=== PATIENT | female | born 1965 | race Two or more races ===

== ENCOUNTER 2019-12-21 09:38 | Emergency (ER) | payer OTHER ==
[~2019-12-21] VITALS: Ht 157.5 cm; Wt 68.0 kg
--- NOTE | 2019-12-21 10:07 | NUR ---
DR VILLAVICENCIO AT BEDSIDE FOR EVAL.
[2019-12-21] MEDS ORDERED: HYDROCODONE/APAP 5/325MG 1 EACH TABLET ONE (10:29)
[2019-12-21] MEDS ORDERED: HYDROCODONE/APAP 5/325MG 1 EACH TABLET PO ONE (10:30)
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
--- NOTE | 2019-12-21 11:35 | NUR ---
Patient discharged to home in stable condition. Written and verbal after care instructions given. Patient verbalizes understanding of instruction.
[2019-12-21 11:36] VITALS: BP 115/72
== END 2019-12-21 11:37 | disposition home or self-care (01) ==
LOC: ER 09:38
DX: S00.83XA Contusion of other part of head, initial encounter (principal); M32.9 Systemic lupus erythematosus, unspecified; Y04.0XXA Assault by unarmed brawl or fight, initial encounter; Y93.89 Activity, other specified; Y92.89 Other specified places as the place of occurrence of the external cause; Y99.8 Other external cause status
CPT/HCPCS: 70450-TC; 70486-TC

== ENCOUNTER 2019-12-27 17:08 | Emergency (ER) | payer OTHER ==
[~2019-12-27] VITALS: Ht 157.5 cm; Wt 59.0 kg
--- NOTE | 2019-12-27 17:55 | NUR ---
Flu Swab collected and sent to Lab.
[2019-12-27] MEDS ORDERED: IPRATROPIUM NEB FS 0.5 MG/2.5 ML AMPUL.NEB NEB ONE (18:00)
[2019-12-27] MEDS ORDERED: ALBUTEROL FS 2.5 MG/3 ML VIAL.NEB NEB ONE (18:00)
[2019-12-27] MEDS ORDERED: ALBUTEROL FS 2.5 MG/3 ML VIAL.NEB ONE (18:01)
[2019-12-27] MEDS ORDERED: IPRATROPIUM NEB FS 0.5 MG/2.5 ML AMPUL.NEB ONE (18:01)
--- NOTE | 2019-12-27 19:16 | NUR ---
patient a/ox4, breathing even and unlabored, nos ob noted. Patient discharged to home in stable condition. Written and verbal after care instructions given. Patient verbalizes understanding of instruction.
[2019-12-27 19:17] VITALS: BP 116/66
== END 2019-12-27 19:17 | disposition home or self-care (01) ==
LOC: ER 17:12
DX: J40 Bronchitis, not specified as acute or chronic (principal); B34.9 Viral infection, unspecified; M32.9 Systemic lupus erythematosus, unspecified
CPT/HCPCS: 71045-TC